=== PATIENT | female | born 1995 | race American Indian/Alaskan Native ===

== ENCOUNTER 2017-02-11 17:41 | Emergency (ER) | payer SELFPAY ==
[2017-02-11 18:15] VITALS: BP 114/78
--- NOTE | 2017-02-11 18:17 | Emergency Department Report ---
Chief Complaint: Chest Pain Stated Complaint: CHEST PAIN/DIZZINESS/M[place] Time Seen by Provider: 02/11/17 18:24 - HPI History of Present Illness: numerous com lower l tooth pain dizzy when using restroom. states noise drained from ear also cp asthma hx sound congested denies dysuria here w aunt - Exam Vital Signs: Vital Signs 02/11/17 18:11 Temperature 100.2 F H Pulse Rate 73 Respiratory 18 Rate Blood Pressure 114/78 O2 Sat by Pulse 100 Oximetry MSE screening note: Focused history and physical exam performed. Due to findings the following was ordered: ED Disposition for MSE Condition: Stable
[2017-02-11] MEDS ORDERED: MOTRIN PO ONE (18:24)
== END 2017-02-11 19:45 | disposition left against medical advice (07) ==
LOC: ED 17:41
DX: R07.9 Chest pain, unspecified (principal); K08.89 Other specified disorders of teeth and supporting structures; R42 Dizziness and giddiness; Z53.21 Procedure and treatment not carried out due to patient leaving prior to being seen by health care provider
CPT/HCPCS: 93005; 93010